=== PATIENT | male | born 1970 | race African-American/Black ===

== ENCOUNTER 2019-05-28 14:39 | Emergency (ER) | payer SELFPAY ==
[2019-05-28 14:56] VITALS: BP 138/98
[2019-05-28] MEDS ORDERED: TETRACAINE HCL 0.5% OPH SOLN 4 ML OD ONE (15:23)
--- NOTE | 2019-05-28 15:27 | ER Document Report ---
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 Patient reports increasing sensitivity to light. States the eye does not shut all the way he has been using drops in the eye but has had increased pain over the last several days. Not sure if he scratched the eye or not. States that he can see out of the eye. I have greeted and performed a rapid initial assessment of this patient. A comprehensive ED assessment and evaluation of the patient, analysis of test results and completion of the medical decision making process will be conducted by additional ED providers PHYSICAL EXAMINATION: GENERAL: Well-appearing, well-nourished and in no acute distress. HEAD: Atraumatic, normocephalic. EYES: sclera anicteric, conjunctiva moderately injected in the right eye, no periorbital swelling. ENT: Moist mucous membranes. NECK: Normal range of motion NEUROLOGICAL: Right facial droop is noted PSYCH: Normal mood, normal affect. SKIN: Warm, Dry, normal turgor, no rashes or lesions noted. - Related Data Allergies/Adverse Reactions: Iodine and Iodide Containing Produc Allergy (Verified 05/28/19 15:17) Physical Exam - Vital signs Vitals: Temp Pulse Resp BP Pulse Ox 98.1 F 87 20 138/98 H 100 05/28/19 14:54 05/28/19 14:54 05/28/19 14:54 05/28/19 14:54 05/28/19 14:54 Course - Vital Signs Vital signs: Temp Pulse Resp BP Pulse Ox 98.1 F 87 20 138/98 H 100 05/28/19 14:54 05/28/19 14:54 05/28/19 14:54 05/28/19 14:54 05/28/19 14:54
--- NOTE | 2019-05-28 16:08 | ER Document Report ---
HPI - HPI Time Seen by Provider: 05/28/19 15:17 Pain Level: 5 Notes: Patient is a 49-year-old male complaining of right eye irritation and redness over the past few days. Patient states that he was diagnosed with Montano's palsy a couple weeks ago and has been on medicine for it, but has been having some irritation to his eye intermittently. Patient states that he does use artificial tears on occasion, but not religiously. He has not had any other changes in his vision. He does not wear contact lenses. Patient states that for a long period of time he was unable to close his eyelid, but over the past couple days he has been able to close it intermittently. He has no other concerns or complaints. Patient states that he has yet to schedule an appointment with an eye doctor. Denies any headache, fever, neck pain, changes in vision/speech/mentation/hearing, URI, sore throat, chest pain, palpitations, syncope, cough, shortness of breath, wheeze, dyspnea, abdominal pain, nausea/vomiting/diarrhea, urinary retention, dysuria, hematuria, loss of control of bowel or bladder, numbness/tingling, saddle anesthesia, muscle paralysis/weakness, or rash. - ROS Systems Reviewed and Negative: Yes All other systems reviewed and negative - EENT EENT: REPORTS: Eye problems - NEURO Neurology: REPORTS: Headache Past Medical History - Social History Smoking Status: Unknown if Ever Smoked Family History: Reviewed & Not Pertinent Patient has suicidal ideation: No Patient has homicidal ideation: No Vertical Provider Document - CONSTITUTIONAL Agree With Documented VS: Yes Notes: PHYSICAL EXAMINATION: GENERAL: Well-appearing, well-nourished and in no acute distress. A&Ox4 HEAD: Atraumatic, normocephalic. EYES: Pupils equal round and reactive to light, extraocular movements intact, sclera anicteric, rt conjunctiva injected. Lt wnl. No discharge or matting. Non-tender to palp of the globe and eye itself. No surrounding erythema or swelling noted. Visual acuity 20/25 b/l and in each eye (performed by myself at bedside with my own eye chart). Wood's lamp/flourescein: No abrasion, laceration, ulceration, or ralph sign noted. No obvious foreign body appreciated. Tonometry: Pressure right eye is 13 ENT: EAC clear b/l. TM's intact b/l without erythema, fluid, or perforation. Nares patent and without discharge. oropharynx clear without exudates. No tonsilar hypertrophy or erythema. Moist mucous membranes. No sinus tenderness. Uvula midline. No palatine shift. No airway compromise. No drooling or hoarseness. NECK: Normal range of motion, supple without lymphadenopathy. No rigidity/meningismus. LUNGS: Breath sounds clear to auscultation bilaterally and equal. No wheezes rales or rhonchi. HEART: Regular rate and rhythm without murmurs, rubs, gallops. Musculoskeletal: Ext b/l: FROM to passive/active. Strength 5+/5. Extremities: No cyanosis, clubbing, or edema b/l. Peripheral pulses 2+. Capillary refill less than 3 seconds. NEUROLOGICAL: Cranial nerves grossly intact. Normal speech, normal gait. Normal sensory, motor exams PSYCH: Normal mood, normal affect. SKIN: Warm, Dry, normal turgor, no rashes or lesions noted. Course - Re-evaluation Re-evalutation: 05/28/[address] Martin ([facility]) who agrees with dispo/plan: Their office will call and check on him tomorrow and schedule appointment for this week. Patient is an afebrile, well-hydrated, 49-year-old male who presents to the em ergency department with right eye redness, suspect dry eye vs mild iritis. Vitals are acceptable without significant tachycardia, tachypnea, or hypoxia. PE is otherwise unremarkable. Patient is nontoxic-appearing and is able to tolerate p.o. without difficulty. No labs or imaging warranted. Eye exam otherwise unremarkable with pressure of 13 as well. Low suspicion for any retained corneal or lid foreign body, deep space infection including orbital cellulitis/abscess, acute glaucoma, penetrating globe injury, retinal detachment, meningitis, sepsis, fracture, compartment syndrome. I will send home with a prescription for erythromycin to use as directed (nighttime). Conservative measures otherwise for symptoms with proper handwashing. Recheck with your PCM in 3-5 days. See ophthalmology this week. Return to the ED with any worsening/concerning symptoms otherwise as reviewed in discharge. Patient is in agreement. - Vital Signs Vital signs: Temp Pulse Resp BP Pulse Ox 98.1 F 87 20 138/98 H 100 02/04/20 14:54 05/28/19 14:54 05/28/19 14:54 05/28/19 14:54 05/28/19 14:54 Discharge - Discharge Clinical Impression: Pain, eye, right Condition: Stable Disposition: HOME, SELF-CARE Additional Instructions: Keep eyes clean Avoid scratching/touching eyes Wash hands regularly Use eye drops as directed Maintain adequate fluid intake tylenol/ibuprofen as needed over the counter cold medication as needed for symptoms F/u: with your PCM in 2-3 days for a recheck See Dr. Martin, Ophthalmology, this week--they should be calling you tomorrow Return to the ED with any worsening symptoms and/or development of fever, headache, changes in vision, eye pain, worsening eye redness, redness around the eyes, purulent discharge, sore throat, facial swelling, neck pain/stiffness, chest pain, palpitations, syncope, shortness of breath, trouble breathing, abdominal pain, n/v/d, blood in stool/urine, dysuria, or other worsening symptoms that are concerning to you. Prescriptions: Erythromycin Base [Erythromycin Oph 1 gm Oint Ud] 1 applic OP QHS #1 tube Forms: Elevated Blood Pressure Referrals: LASHELL MARTIN MD [ACTIVE STAFF] - Follow up in 3-5 days
== END 2019-05-28 17:18 | disposition home or self-care (01) ==
LOC: ER 14:39
DX: H57.11 Ocular pain, right eye (principal); G51.0 Bell's palsy; R51 Headache
CPT/HCPCS: 99283; J3490